=== PATIENT | male | born 1970 | race Caucasian/White ===

== ENCOUNTER 2021-02-20 12:44 | Outpatient (CLI) | payer BC, SELFPAY ==
[2021-02-20] MEDS: 0.9% Saline Lock 10 ML Syringe IV (13:08)
[2021-02-20 13:10] VITALS: BP 169/92; PULSE 83; RESP 18; TEMP 36.6; O2SAT 100; BMI 39.0
[2021-02-20 13:46] VITALS: BP 142/84; PULSE 75; RESP 16; TEMP 36.6; O2SAT 97
[2021-02-20 14:46] VITALS: BP 156/93; PULSE 78; RESP 16; TEMP 36.8; O2SAT 98
== END 2021-02-20 14:48 | disposition home or self-care (01) ==
LOC: MS3OUT 12:44 → MS3 12:44
PROVIDERS: Referring Provider Nurse Practitioner Adult Health; Visit Provider Nurse Practitioner Adult Health
DX: Z23 Encounter for immunization (principal); U07.1 COVID-19
CPT/HCPCS: J7050; M0245; Q0245; A4216